=== PATIENT | male | born 1990 | race Caucasian/White ===

== ENCOUNTER 2018-02-14 19:06 | Inpatient (IN) | payer OTHER ==
[~2018-02-14] VITALS: Ht 185.4 cm; Wt 107.5 kg
[2018-02-14 19:38] LABS: HEMATOCRIT 41.7 % (42.0-52.0); HEMOGLOBIN 15.5 g/dl (13.5-18.0); MEAN CELL VOLUME 86 fl (80.0-100.0); MEAN CORPUSCULAR HEMOGLOBIN 32 pg (27.0-31.0); MEAN CORPUSCULAR HGB CONC 37 g/dl (33.0-37.0); MEAN PLATELET VOLUME 9.9 fl (7.4-10.4); PLATELET COUNT 178 K/mm3 (130-400); RED BLOOD COUNT 4.88 M/mm3 (4.20-5.60)
[2018-02-14 19:52] LABS: ALANINE AMINOTRANSFERASE 266 U/L (21-72); ALKALINE PHOSPHATASE 78 U/L (50-136); ANION GAP 14 mmol/L (7-16); BILIRUBIN,TOTAL 1.7 mg/dL (0.0-1.0); BLOOD UREA NITROGEN 23 mg/dL (9-20); CALCIUM 8.8 mg/dL (8.4-10.2); CARBON DIOXIDE 22 mmol/L (22-30); CHLORIDE 100 mmol/L (98-107); CREATININE, serum 1.24 mg/dL (0.66-1.25); GLUCOSE 103 mg/dL (74-106); POTASSIUM 3.6 mmol/L (3.4-5.0); SODIUM 135 mmol/L (137-145); TOTAL PROTEIN 7.7 gm/dL (6.4-8.2)
[2018-02-14 19:53] LABS: ACETAMINOPHEN < 10 ug/mL (10-30); ALCOHOL(ethanol),MEDICAL < 10 mg/dL; SALICYLATE < 1.0 mg/dL
[2018-02-14 19:57] LABS: AST,SGOT 761 U/L (15-37)
[2018-02-14 20:02] LABS: TROPONIN-I < 0.012 ng/mL (0.000-0.034)
[2018-02-14 20:23] LABS: BAND 10 % (0-10); LYMPHOCYTE 12 % (20.0-51.0); NEUTROPHILS 71 % (42.0-75.2); PLATELET ESTIMATE NORMAL (NORMAL)
[2018-02-14 20:24] LABS: CREATINE KINASE 31423 U/L (55-170)
[2018-02-14 22:01] LABS: COLLECTION METHOD CLEAN CATCH
[2018-02-14 22:12] LABS: MUCOUS Present /lpf; PH 5 (5-8); SQUAMOUS EPITHELIAL 0-2 /hpf; URINE APPEARANCE Hazy; URINE BACTERIA Rare /hpf; URINE BILIRUBIN Negative (NEGATIVE); URINE BLOOD 3+ (NEGATIVE); URINE COLOR Yellow; URINE GLUCOSE Negative (NEGATIVE); URINE KETONE 2+ (NEGATIVE); URINE LEUKOCYTE ESTERASE Negative (NEGATIVE); URINE NITRATE Negative (NEGATIVE); URINE PROTEIN(semi-quant) 2+ (NEGATIVE); URINE RBC 0-2 /hpf; URINE UROBILINOGEN Negative (NEGATIVE)
[2018-02-14 22:13] LABS: TRICYCLIC ANTIDEPRESS URINE NEGATIVE
[2018-02-15] VITALS (431 sets, daily range): BP systolic 111–127; BP diastolic 53–78; PULSE 74–100; TEMP 97.3–99.8; O2SAT 81–100
[2018-02-15 02:30] LABS: CALCIUM 7.5 mg/dL (8.4-10.2); CREATININE, serum 0.83 mg/dL (0.66-1.25); MAGNESIUM 2.2 mg/dL (1.6-2.3); POTASSIUM 3.8 mmol/L (3.4-5.0)
[2018-02-15 03:00] LABS: TSH w REFLEX 1.79 uIU/mL (0.465-4.680)
[2018-02-15 06:02] LABS: BASO % 0.2 % (0.0-2.0); EOS % 0.3 % (0-4.0); GRAN # 9.6 (1.4-6.5); GRAN % 70.1 % (42.2-75.2); LYMPH # 2.5 (1.2-3.4); LYMPH % 18.3 % (20.0-51.0); MEAN CELL VOLUME 89 fl (80.0-100.0); MEAN CORPUSCULAR HGB CONC 36 g/dl (33.0-37.0); MEAN PLATELET VOLUME 10.3 fl (7.4-10.4); MONO # 1.5 (0.1-0.6); MONO % 10.6 % (1.7-9.3); PLATELET COUNT 135 K/mm3 (130-400); RED BLOOD COUNT 4.02 M/mm3 (4.20-5.60); REDCELL DISTRIBUTION WIDTH-CV 12.4 % (11.5-14.5)
[2018-02-15 06:12] LABS: HEMATOCRIT 35.8 % (42.0-52.0); HEMOGLOBIN 12.7 g/dl (13.5-18.0); MEAN CORPUSCULAR HEMOGLOBIN 32 pg (27.0-31.0)
[2018-02-15 08:46] LABS: CREATINE KINASE 17388 U/L (55-170)
[2018-02-15 18:19] LABS: CALCIUM 7.7 mg/dL (8.4-10.2); CREATININE, serum 0.6 mg/dL (0.66-1.25); MAGNESIUM 2.2 mg/dL (1.6-2.3); POTASSIUM 3.9 mmol/L (3.4-5.0)
[2018-02-15 23:32] LABS: CALCIUM 8.1 mg/dL (8.4-10.2); CREATININE, serum 0.63 mg/dL (0.66-1.25); POTASSIUM 3.7 mmol/L (3.4-5.0)
[2018-02-16] VITALS: BP 119/72; PULSE 98; TEMP 100.6
[2018-02-16 04:00] VITALS: BP 131/58; PULSE 74; TEMP 97.4
[2018-02-16 05:31] LABS: BASO % 0.1 % (0.0-2.0); EOS # 0.1 (0.0-0.7); EOS % 0.9 % (0-4.0); GRAN # 5.8 (1.4-6.5); GRAN % 65.9 % (42.2-75.2); HEMOGLOBIN 11.6 g/dl (13.5-18.0); LYMPH # 1.9 (1.2-3.4); LYMPH % 21.3 % (20.0-51.0); MEAN CELL VOLUME 88 fl (80.0-100.0); MEAN CORPUSCULAR HEMOGLOBIN 32 pg (27.0-31.0); MEAN CORPUSCULAR HGB CONC 36 g/dl (33.0-37.0); MEAN PLATELET VOLUME 9.6 fl (7.4-10.4); MONO % 11.3 % (1.7-9.3); PLATELET COUNT 132 K/mm3 (130-400); RED BLOOD COUNT 3.67 M/mm3 (4.20-5.60); REDCELL DISTRIBUTION WIDTH-CV 12.3 % (11.5-14.5)
[2018-02-16 05:33] LABS: HEMATOCRIT 32.3 % (42.0-52.0)
[2018-02-16 05:44] LABS: CALCIUM 7.7 mg/dL (8.4-10.2); CREATININE, serum 0.61 mg/dL (0.66-1.25); MAGNESIUM 2.1 mg/dL (1.6-2.3); POTASSIUM 3.6 mmol/L (3.4-5.0)
[2018-02-16 12:03] VITALS: BP 137/99; PULSE 102; TEMP 97.1
[2018-02-16 16:00] VITALS: BP 128/79; PULSE 61; PULSE 65; TEMP 97; TEMP 99.1
[2018-02-16 20:00] VITALS: BP 142/94; PULSE 99; TEMP 99.9
[2018-02-17 06:39] LABS: BASO % 0.3 % (0.0-2.0); EOS # 0.2 (0.0-0.7); EOS % 2.2 % (0-4.0); GRAN # 3.9 (1.4-6.5); HEMOGLOBIN 12.6 g/dl (13.5-18.0); LYMPH % 28.8 % (20.0-51.0); MEAN CELL VOLUME 90 fl (80.0-100.0); MEAN CORPUSCULAR HEMOGLOBIN 32 pg (27.0-31.0); MEAN CORPUSCULAR HGB CONC 36 g/dl (33.0-37.0); MEAN PLATELET VOLUME 9.8 fl (7.4-10.4); MONO # 0.9 (0.1-0.6); MONO % 12.3 % (1.7-9.3); PLATELET COUNT 165 K/mm3 (130-400); RED BLOOD COUNT 3.95 M/mm3 (4.20-5.60); REDCELL DISTRIBUTION WIDTH-CV 12.5 % (11.5-14.5)
[2018-02-17 06:46] LABS: HEMATOCRIT 35.5 % (42.0-52.0)
[2018-02-17 06:53] LABS: CALCIUM 8.9 mg/dL (8.4-10.2); CREATININE, serum 0.63 mg/dL (0.66-1.25); POTASSIUM 4.1 mmol/L (3.4-5.0)
[2018-02-17 08:00] VITALS: BP 117/91; PULSE 88
[2018-02-17 20:00] VITALS: BP 135/84; PULSE 75; TEMP 98.5
[2018-02-18 04:00] VITALS: BP 121/56; PULSE 71; TEMP 99.2
[2018-02-18 05:46] LABS: BASO % 0.2 % (0.0-2.0); EOS # 0.2 (0.0-0.7); EOS % 2.8 % (0-4.0); GRAN # 3.7 (1.4-6.5); GRAN % 56.2 % (42.2-75.2); HEMOGLOBIN 12.9 g/dl (13.5-18.0); LYMPH # 1.8 (1.2-3.4); LYMPH % 28.1 % (20.0-51.0); MEAN CELL VOLUME 91 fl (80.0-100.0); MEAN CORPUSCULAR HEMOGLOBIN 32 pg (27.0-31.0); MEAN CORPUSCULAR HGB CONC 35 g/dl (33.0-37.0); MEAN PLATELET VOLUME 9.8 fl (7.4-10.4); MONO # 0.8 (0.1-0.6); MONO % 12.5 % (1.7-9.3); PLATELET COUNT 178 K/mm3 (130-400); RED BLOOD COUNT 4.06 M/mm3 (4.20-5.60); REDCELL DISTRIBUTION WIDTH-CV 12.3 % (11.5-14.5)
[2018-02-18 06:06] LABS: CALCIUM 8.8 mg/dL (8.4-10.2); CREATININE, serum 0.67 mg/dL (0.66-1.25); MAGNESIUM 1.7 mg/dL (1.6-2.3); POTASSIUM 4.1 mmol/L (3.4-5.0)
[2018-02-18 06:07] LABS: HEMATOCRIT 36.9 % (42.0-52.0)
[2018-02-18] MEDS ORDERED: ATIVAN 1MG T1 MG/TAB PO (14:08)
== END 2018-02-18 17:30 | disposition home or self-care (01) | DRG 885 ==
LOC: COL.ER 19:06 → ICU 22:57
PROVIDERS: Emergency Medicine; Hospitalist; Nurse Practitioner Family
PROC: 02HV33Z Insertion of Infusion Device into Superior Vena Cava, Percutaneous Approach (ICD-10-PCS; principal; 2018-02-15)
DX: F31.2 Bipolar disorder, current episode manic severe with psychotic features (principal); M62.82 Rhabdomyolysis; N17.9 Acute kidney failure, unspecified; E87.5 Hyperkalemia
CPT/HCPCS: 99223-AI; 99232-AI; 99233-AI; 99239; C1751; J1630; J1644; J2060; J7030